=== PATIENT | female | born 1990 | race Asian ===

== ENCOUNTER 2018-02-21 01:30 | Emergency (ER) | payer OTHER ==
[~2018-02-21] VITALS: Ht 157.5 cm; Wt 48.1 kg
[2018-02-21 01:40] VITALS: BP 118/80; Ht 157.5 cm; Wt 48.1 kg
== END 2018-02-21 02:01 | disposition home or self-care (01) ==
LOC: ED 01:30
DX: H66.92 Otitis media, unspecified, left ear (principal)

== ENCOUNTER 2018-07-23 20:34 | Emergency (ER) | payer OTHER ==
[~2018-07-23] VITALS: Ht 157.5 cm; Wt 49.4 kg
[2018-07-23 20:38] VITALS: Ht 157.5 cm; Wt 49.4 kg
[2018-07-23 21:20] VITALS: BP 142/103
== END 2018-07-23 21:20 | disposition home or self-care (01) ==
LOC: ED 20:34
DX: L03.317 Cellulitis of buttock (principal); R03.0 Elevated blood-pressure reading, without diagnosis of hypertension